=== PATIENT | female | born 1930 | race Caucasian/White ===

== ENCOUNTER 2016-10-14 20:30 | Inpatient (IN) | payer MEDICARE, BC, OTHER ==
--- NOTE | ~2016-10-14 | MR113 ---
[facility] A Service of [facility] & [facility] RADIOLOGY TEXT RESULTS PATIENT: FERNANDA SOLORZANO LOCATION: [place] [address]- : [birth year] UNIT #: [id number] AGE: [address]: Gucci Lezama MD SEX: F ORDER DR: [id number] [facility] [address] [facility]. [place], [place] [address] [id number] I MR#: [id number] Acc #: [id number] NAME: FERNANDA SOLORZANO : 1930 SEX: F STUDY DATE/TIME: 10/16/2016 19:10 UNIT: [facility] ROOM: [facility] STUDY DESCRIPTION: MR Lumbar Wo Contrast Attending Physician: Gucci Lezama M.D. Ordering Physician: Gucci Lezama M.D. Primary Care Physician: Lasha Olivera MRI CENTER REPORT This report is preliminary unless electronic signature is present. EXAM Lumbar spine MRI no contrast, 10/16/2016 COMPARISON None CLINICAL HISTORY Low back pain. Right hip pain. No known injury. Pain/symptoms since 10/14/2016. Patient complains of inability to bear weight. PROCEDURE Unenhanced lumbar spine MRI. The majority of the exam was completed but no axial T1 images were performed as the patient stated she was unable to complete the exam. FINDINGS There is a dextroscoliosis but no andrea or retrolisthesis. There are chronic degenerative marrow signal changes but no acute marrow edema or evidence of marrow infiltration or replacement. The distal cord and conus are normal in position and appearance and the paraspinous tissues are unremarkable. At L1-2, there is a disc bulge and borderline to mild canal stenosis and borderline to mild right and left foraminal stenosis. At L2-3, disc and endplate change cause left greater than right canal stenosis. There is minimal right and mild left foraminal stenosis. At 3-4, disc and endplate change cause mild canal stenosis and [id number] or moderate left and right foraminal stenosis. At 4-5, there is borderline to mild canal stenosis, and mild or xxrb-hu-fojlbsme left and moderate to severe right foraminal stenosis. STS. [facility] A Service of [facility] & [facility] RADIOLOGY TEXT RESULTS PATIENT: FERNANDA SOLORZANO LOCATION: [facility] [id number] : [birth year] UNIT #: [id number] AGE: [address]: Gucci Lezama MD SEX: F ORDER DR: At 5-1, there is degenerative change but no canal stenosis but [id number] or moderate right and left foraminal stenosis. IMPRESSION Lower lumbar multilevel degenerative change but no evidence of acute abnormality at any level. Please see above for level by level details. Dictated by... Abdon Velasquez M.D. THIS IS AN ELECTRONICALLY VERIFIED REPORT Abdon Velasquez M.D. at 10/23/2016 10:40 AM Duran TD: 10/17/2016 12:04 JOB #: [id number] MRI CENTER REPORT Page 1 of 1 COPY
--- NOTE | ~2016-10-14 | CR151 ---
[facility] A Service of [facility] & [facility] RADIOLOGY TEXT RESULTS PATIENT: FERNANDA SOLORZANO LOCATION: [place] [address] : [birth year] UNIT #: [id number] AGE: [address]: Gucci Lezama MD SEX: F ORDER DR: [id number] [facility] [address] [facility]. [place], [place] [address] [id number] E MR#: [id number] Acc #: [id number] NAME: FERNANDA SOLORZANO : 1930 SEX: F STUDY DATE/TIME: 10/14/2016 19:42 UNIT: [facility] ROOM: STUDY DESCRIPTION: CR Hip Min 2 Views Rt Attending Physician: Jorge Park M.D. Referring Physician: Flakito Huerta M.D. Ordering Physician: Ed Evens Agee M.D. Primary Care Physician: Lasha Olivera MEDICAL IMAGING REPORT This report is preliminary unless electronic signature is present EXAM Right hip, [address] abdomen and pelvis dated March 04, 2006. INDICATION 86-year-old female with right hip pain and weakness after falling today. FINDINGS There are calcium densities in the bilateral pelvis, most in keeping with phleboliths. There are arterial calcifications within the proximal thighs. There is degenerative disc height loss at L4-L5 and likely L5-S1, likely with associated degenerative facet disease at these levels. Right hip is anatomically aligned. There is no evidence of acute fracture. There is a Mach line from a haustrum of the sigmoid colon overlapping the pubic symphysis. No evidence of acute fracture. IMPRESSION 1. No evidence of acute fracture or significant degenerative change of the right hip. 2. Arterial calcifications in the thighs bilaterally. 3. Degenerative changes of the lower lumbar spine. Dictated by... Ruslan Lowe M.D. THIS IS AN ELECTRONICALLY VERIFIED REPORT Ruslan Lowe M.D. at 10/18/2016 2:23 PM Matheus TD: 10/14/2016 22:34 STS. [facility] A Service of [facility] & [facility] RADIOLOGY TEXT RESULTS PATIENT: FERNANDA SOLORZANO LOCATION: [place] [address] : [birth year] UNIT #: [id number] AGE: [address]: Gucci Lezama MD SEX: F ORDER DR: JOB #: [id number] MEDICAL IMAGING REPORT Page 1 of 1 COPY
--- NOTE | ~2016-10-14 | MR84 ---
[facility] A Service of [facility] & [facility] RADIOLOGY TEXT RESULTS PATIENT: FERNANDA SOLORZANO LOCATION: [place] [address]- : [birth year] UNIT #: [id number] AGE: [address]: Gucci Lezama MD SEX: F ORDER DR: [id number] [facility] [address] [facility] [place], [place] [address] [id number] I MR#: [id number] Acc #: [id number] NAME: FERNANDA SOLORZANO. : 1930 SEX: F STUDY DATE/TIME: 10/16/2016 11:54 UNIT: [facility] ROOM: [facility] STUDY DESCRIPTION: MR Hip Wo Contrast Rt Attending Physician: Gucci Lezama M.D. Ordering Physician: Gucci Lezama M.D. Primary Care Physician: Lasha Olivera MRI CENTER REPORT This report is preliminary unless electronic signature is present. EXAM MRI pelvis and hips, 10/16/2016. HISTORY Order states MRI right hip. History sheet states right hip pain with no known injury. Weakness. Pain since of 10/14/2016. Unable to bear weight. Diabetic. No reported hip surgery. COMPARISON History and physical [facility] 10/15/2016. Right hip radiographs 10/14/[address] pelvis 02/22/2006. FINDINGS The hips demonstrate no effusion, fracture, avascular necrosis, or high-grade arthritic change. The remainder of the bony pelvis, sacrum, and SI joints demonstrate no fracture or lesion. The predominant abnormality is a gluteus medius tendon detachment from the greater trochanter with 2.5 cm tendon retraction and marked surrounding muscle and soft tissue edema. Retracted tendon is tendinopathic. There is a moderate atrophy of the distal central muscle belly of the gluteus medius. There is marked bilateral gluteus minimus muscle atrophy with attenuated tendons but no discrete tear or detachment. There is also chronic atrophy of the left gluteus medius muscle in its distal portion with tendinosis but no tendon tear detachment demonstrated. There is also edema within the right piriformis muscle which may be tracking from the gluteus medius tendon pathology. Edema tracks through the greater sciatic notch, as well as along the course of the greater sciatic nerve. [facility] A Service of [facility] RADIOLOGY TEXT RESULTS PATIENT: FERNANDA SOLORZANO LOCATION: [facility] [id number] : [birth year] UNIT #: [id number] AGE: [address]: Gucci Lezama MD SEX: F ORDER DR: Hamstring tendon origins are intact. There is a Bishop catheter and air in the bladder. There is prominent sigmoid diverticulosis. No groin hernia or internal pelvic mass or adenopathy is noted. Right-sided hip region edema also tracks into the proximal anterolateral thigh superficial to the vastus lateralis muscle. IMPRESSION 1. There is no pelvic or hip fracture. No internal derangement of the hip joints. 2. The predominant abnormality is right gluteus medius tendon detachment from the greater trochanter with 2.5 cm tendon retraction and marked surrounding soft tissue edema. Edema tracks across the greater sciatic notch into the piriformis muscle as well as into the anterolateral right thigh. There is right sciatic perineural edema. No hematoma. 3. Bilateral gluteus minimus and medius muscle atrophy detailed above. 4. Diverticulosis. STAT * RESULT Dictated by... Gretchen Howard M.D. THIS IS AN ELECTRONICALLY VERIFIED REPORT Gretchen Howard M.D. at 10/16/2016 3:44 PM ROBERTH/see TD: 10/16/2016 13:50 JOB #: [id number] MRI CENTER REPORT Page 1 of 1 COPY
--- NOTE | ~2016-10-14 | CO ---
Unit #: [id number] #: [id number] Patient: FERNANDA SOLORZANO [id number] [address] [place], [place] [address] [id number] I MR#: [id number] NAME: FERNANDA SOLORZANO ROOM: 477 Age: 86 Sex: F Admission Date: 10/15/2016 : 1930 Attending Physician: Gucci Lezama M.D. Primary Care Physician: Lasha Olivera Consultation Date: 10/16/2016 CONSULTATION REPORT PREOPERATIVE DIAGNOSIS Trochanteric bursitis, right hip. POSTOPERATIVE DIAGNOSIS Trochanteric bursitis, right hip. PROCEDURE PERFORMED Right hip trochanteric bursa injection. DESCRIPTION OF PROCEDURE At the bedside, under alcohol prep, the trochanteric bursa was injected with 2 mL of 1% plain Xylocaine and 80 mg of Depo-Medrol. Sterile dressing was applied, and the patient tolerated the procedure well. Dictated by... Randee Leon/danielle TD: 10/16/2016 17:02 JOB #: [id number] CONSULTATION REPORT Page 1 of 1 X Jeff Wick MD X CONSULTATION REPORT
--- NOTE | ~2016-10-14 | DS ---
Unit #: [id number] #: [id number] Patient: FERNANDA SOLORZANO [id number] [address] [place], [place] [address] [id number] I MR#: [id number] NAME: FERNANDA SOLORZANO. ROOM: 477 Age: 86 Sex: F Admission Date: 10/15/2016 : 1930 Discharge Date: 10/19/2016 Attending Physician: Gucci Lezama M.D. Primary Care Physician: Lasha Olivera DISCHARGE SUMMARY PRINCIPAL DISCHARGE DIAGNOSES 1. Right gluteal medius tendon tear. 2. Lumbar spinal stenosis. 3. Right lower extremity radiculopathy. 4. Type 2 diabetes mellitus. 5. Renal insufficiency. 6. Hypertension. 7. Gout. 8. Hypothyroidism. PROCEDURES None. CONSULTANTS Dr. Wick. REASON FOR HOSPITALIZATION The patient is an 86-year-old white female who presents to the emergency room with mobilization syndrome secondary to acute right hip pain. In the emergency room, x-rays of the right hip were normal but showed degenerative disc disease of the spine. CBC was normal. Urinalysis was normal. BUN was 33. GFR 44.8. The patient was admitted. HOSPITAL COURSE She was seen by Dr. Wick. Uric acid was checked because of her history of gout and was within normal range at 2.8. MRI of the hip and L/S spine were performed. MRI of the hip showed no fracture. It showed a right gluteus medius tendon detachment from the right greater trochanter of 2.5 cm of retraction with marked surrounding soft tissue edema. MRI of the spine showed multilevel degenerative disc disease and stenosis particularly worse at L4-5 with moderate to severe right foraminal stenosis as the patient's symptoms went down her leg as well. I think it is a combination of both. She is going to [place] for further physical therapy. Her blood sugars originally were a little low. Adjustments were made in her insulin and they have been fine ever since. She is being discharged on a constant carb diet. CURRENT MEDICATIONS 1. Lovenox 40 mg subcu daily. 2. Neurontin 300 mg b.i.d. 3. Paxil 10 mg daily. 4. Amlodipine 5 mg daily. 5. Lasix 20 mg daily. 6. Clonidine 0.1 mg daily. Unit #: [id number] #: [id number] Patient: FERNANDA SOLORZANO 7. Diovan 160 mg daily. 8. NovoLog 70/30 15 units a.m. and 10 units p.m. 9. NovoLog sliding scale insulin low dose q.a.c. and h.s. 10. Pepcid 20 mg p.o. b.i.d. 11. Zyloprim 300 mg daily. 12. Aspirin 81 mg daily. 13. Newton 5/325 mg one q.i.d. p.r.n. for pain. 14. Plavix 75 mg daily. 15. Vitamin D 400 units daily. Dictated by... Gucci Lezama M.D. BRICE/elisabeth TD: 10/19/2016 09:21 JOB #: [id number] DISCHARGE SUMMARY Page 1 of 1 X Gucci Lezama MD X DISCHARGE SUMMARY
--- NOTE | ~2016-10-14 | CO ---
Unit #: [id number] #: [id number] Patient: FERNANDA SOLORZANO [id number] [address] [place], [place] [address] [id number] I MR#: [id number] NAME: FERNANDA SOLORZANO ROOM: 477 Age: 86 Sex: F Admission Date: 10/15/2016 : 1930 Attending Physician: Gucci Lezama M.D. Primary Care Physician: Lasha Olivera Consultation Date: 10/16/2016 CONSULTATION REPORT HISTORY OF PRESENT ILLNESS This is an 86-year-old lady, the patient of Dr. Gucci Lezama. She is admitted to the hospital for right hip pain and difficulty walking. She has not had an injury. The pain is mostly lateral, but it does radiate down the leg to the knee. She denies serious groin pain. No fevers or chills reported, and she can walk, but has to use a cane. ALLERGIES Include Phenergan, codeine, and sulfa. PAST SURGICAL HISTORY Includes thyroid, hysterectomy, cataract, cholecystectomy, and bilateral knee replacements. MEDICATIONS Gabapentin, NovoLog, amlodipine, clonidine, Plavix, Zantac, Paxil, Lasix, Diovan, Zyloprim, vitamin D, aspirin. PAST MEDICAL HISTORY Includes hyperlipidemia, hypothyroidism, hypertension, anxiety disorder, and type 2 diabetes. SOCIAL HISTORY She denies use of tobacco or alcohol. She is . REVIEW OF SYSTEMS HEENT: She denies headaches or blurred vision. Denies loss of hearing or tinnitus. CARDIAC/RESPIRATORY: She denies shortness of breath or chest pain. She denies orthopnea. She denies coughing, wheezing, or difficulty breathing. ABDOMEN: She denies rebound. No diarrhea or vomiting noted. UROLOGIC: She denies flank pain or hematuria. NEUROLOGIC: She denies numbness or weakness in the lower extremities. ORTHOPEDIC: She complains of right hip pain. Tenderness laterally. She cannot sleep on her right side. PHYSICAL EXAMINATION GENERAL: She is alert, awake, and oriented x3. Answers questions appropriately. MUSCULOSKELETAL: Her orthopedic exam reveals that her right hip is tender to palpation on the lateral side. Her neurovascular exam is intact. Range of motion of her hip is intact with no groin pain. DIAGNOSTIC STUDIES Unit #: [id number] #: [id number] Patient: FERNANDA SOLORZANO IMAGING STUDIES: She actually had an MRI of her hip that shows avulsion of the gluteus medius muscle with retraction about an inch. IMPRESSION She has bursitis. PLAN The plan will be to inject this. At this point, I would not recommend surgical treatment of her gluteus medius abduction injury. Dictated by... Randee Leon/danielle TD: 10/16/2016 20:55 JOB #: [id number] CONSULTATION REPORT Page 1 of 1 X Jeff Wick MD X CONSULTATION REPORT
--- NOTE | ~2016-10-14 | HP ---
Unit #: [id number] #: [id number] Patient: FERNANDA SOLORZANO [id number] [address] [place], [place] [address] [id number] I MR#: [id number] NAME: FERNANDA SOLORZANO. ROOM: 477 Age: 86 Sex: F Admission Date: 10/15/2016 : 1930 Attending Physician: Jose Abreu M.D. Primary Care Physician: Lasha Olivera HISTORY AND PHYSICAL HISTORY OF PRESENT ILLNESS The patient is an 86-year-old white female with a history of hypertension and type 2 diabetes mellitus, hyperlipidemia, gout, hypothyroidism, who apparently has had long ongoing problems with right lower extremity pain, which radiates into the posterior hip, down into the foot. She then became markedly worse yesterday and was unable to ambulate and came to the emergency room and had an essentially negative workup, (1) look at her back and she is admitted for immobilization syndrome and pain control. ALLERGIES Sulfa, Phenergan and codeine. MEDICATIONS PRIOR TO ADMISSION Gabapentin 300 mg b.i.d.; NovoLog 70/30 no dose; amlodipine 5 mg daily; clonidine 0.1 mg daily; Plavix 75 mg daily; Zantac 300 mg daily; Paxil 10 mg daily; Lasix 20 mg daily; Diovan 100 mg daily; Zyloprim 300 mg daily; vitamin D 400 units daily; aspirin 81 mg daily. PAST SURGICAL HISTORY Thyroidectomy, hysterectomy, cholecystectomy, bilateral cataracts. PAST MEDICAL HISTORY Diabetes type 2 insulin requiring, hypertension, generalized anxiety disorder, hypothyroidism, gout, hyperlipidemia. SOCIAL HISTORY . No alcohol, tobacco or illicit drug use. FAMILY HISTORY Noncontributory. PHYSICAL EXAMINATION GENERAL: Awake, alert and oriented x3 in no acute distress. VITAL SIGNS: Afebrile, pulse 82, respirations 16, blood pressure 132/80, O2 sats 98% on room air. HEENT: Unremarkable. NECK: Supple. No JVD, adenopathy, thyromegaly. CHEST: Clear to auscultation. HEART: Regular rate and rhythm without any murmurs, rubs or gallops. ABDOMEN: Soft, nondistended, and nontender. Positive bowel sounds. EXTREMITIES: No clubbing, cyanosis or edema. Right lower extremities neurovascularly intact. Unit #: [id number] #: [id number] Patient: FERNANDA SOLORZANO DIAGNOSTIC STUDIES LAB VALUES: CBC - normal. Urinalysis - normal. BNP normal except for random blood sugar of 179, BUN of 33, and a GFR of 44.8. CARDIOLOGY STUDIES: EKG - sinus rhythm with first degree AV block, PACs, left axis deviation, poor R wave progression and no old EKGs for comparison. IMPRESSION 1. Right hip pain, which sound like radiculopathy. 2. Hypertension. 3. Type 2 diabetes mellitus. 4. Hyperlipidemia. 5. Hypothyroidism. 6. Gout. 7. Status post thyroidectomy. 8. Status post hysterectomy. 9. Status post cholecystectomy. 10. Renal insufficiency. PLAN 1. Ortho consult. 2. Lovenox for DVT prophylaxis. 3. Check uric acid level. 4. MRI of the LS spine and right hip. 5. Pain control. 6. PT and OT if there is no fractures or other significant injuries. 7. Further evaluation pending results of the above. Dictated by Gucci Lezama M.D. BRICE/federico TD: 10/15/2016 15:17 JOB #: [id number] HISTORY AND PHYSICAL Page 1 of 1 X Gucci Lezama MD HISTORY AND PHYSICAL
--- NOTE | ~2016-10-14 | EKG ---
PATIENT: FERNANDA SOLORZANO UNIT #: [id number] Ventricular Rate: 97 BPM Atrial Rate: 97 BPM P-R Interval: 222 ms QRS Duration: 112 ms Q-T Interval: 374 ms QTC Calculation(Bezet): 474 ms P Hixson: 99 degrees Calculated R Hixson: -49 degrees Calculated T Hixson: 85 degrees Diagnosis Line: Sinus rhythm with 1st degree A-V block with Diagnosis Line: Premature atrial complexes Diagnosis Line: Left axis deviation Diagnosis Line: Pulmonary disease pattern Diagnosis Line: Septal infarct , age undetermined Diagnosis Line: Abnormal ECG Diagnosis Line: When compared with ECG of 05-APR-2015 13:25, Diagnosis Line: CA interval has increased Diagnosis Line: Confirmed by KIM LEI MD ([id number]) on 10/15/2016 Diagnosis Line: 10:46:02 PM INTERPRETING MD: DO WILSON
[~2016-10-14 20:30] MED LIST: ACETAMINOPHEN500 M7 PO; AMLODIPINE BESYL5 MG PO; ASPIRIN81 M2 PO; CARDIZEM CD; CATAPRES0.1 MG PO; CENTRUM SILVER PO; CLOPIDOGREL75 MG PO; DIOVAN HCT 160/1 TAB; GABAPENTIN300 M2 PO; GLYNASE; LEVOTHYROXINE75 MCG PO; MAGNESIUM400 MG PO; MEDI-MECLIZINE25 M1 PO; METFORMIN; NOVOLOG7030 SUBQ; PAROXETINE HCL10 MG PO; PROTONIX; RANITIDINE HCL300 MG PO; SYNTHROID; TOPROL XL; VALSARTAN-HCTZ1 EAC1 PO; [UNRECOGNIZED DRUG - OTHER]
[2016-10-14 22:50] LABS: URINE SOURCE CLEAN CATCH
[2016-10-14 22:54] LABS: URINE APPEARANCE CLEAR; URINE BILIRUBIN NEG (NEG); URINE BLOOD NEG (NEG); URINE COLOR YELLOW; URINE GLUCOSE NEG (NEG); URINE KETONE NEG (NEG); URINE LEUKOCYTE ESTERASE NEG (NEG); URINE NITRATE NEG (NEG); URINE PH 6.5 (5-8); URINE PROTEIN NEG (NEG); URINE SPECIFIC GRAVITY 1.005 (1.003-1.035); URINE UROBILINOGEN 0.2 MG/DL (NEG)
[2016-10-14 22:56] LABS: BASOPHIL% 0.3 % (0-2.5); EOSINOPHIL# 0.2 X10e3 (0-0.7); EOSINOPHIL% 1.8 % (0.0-7.0); HEMATOCRIT 41.4 % (35.0-45.0); HEMOGLOBIN 13.4 gm/dL (12.0-16.0); LYMPHOCYTE# 1.9 X10e3 (1.0-3.5); LYMPHOCYTE% 21.2 % (17.0-45.0); MEAN CELL VOLUME 100.2 FL (83-96); MEAN CORPUSCULAR HEMOGLOBIN 32.4 PG (28-34); MEAN CORPUSCULAR HGB CONC 32.3 g/dL (30-36); MEAN PLATELET VOLUME 8.8 FL (6.5-11.5); MONOCYTE# 0.7 X10e3 (0-1.0); NEUTROPHIL# 6.1 X10e3 (1.5-7.1); NEUTROPHIL% 68.7 % (40-75); PLATELET COUNT 239 X10e3 (140-420); RED BLOOD COUNT 4.13 X10e (3.90-5.30); RED CELL DISTRIBUTION WIDTH 15.7 % (11.0-15.5); WHITE BLOOD COUNT 8.8 X10e3 (4.0-10.5)
[2016-10-14 22:57] LABS: DIFF IND NO
[2016-10-14 22:58] LABS: CULTURE INDICATED? NO
[2016-10-14 23:16] LABS: CALCIUM SERUM 9.3 mg/dL (8.4-10.2); CREATININE SERUM 1.1 mg/dL (0.6-1.4); GLOM FILT RATE Estimated 44.8 mL/min (>60); POTASSIUM 4.5 mmol/L (3.5-5.1)
[2016-10-15] MEDS ORDERED: GABAPENTIN300 MG PO (05:37)
[2016-10-15] MEDS ORDERED: NOVOLOG7030 (05:38)
[2016-10-15] MEDS ORDERED: AMLODIPINE BESYL5 MG PO (05:40)
[2016-10-15] MEDS ORDERED: METOPROLOL/HCTZ PO (05:40)
[2016-10-15] MEDS ORDERED: CLONIDINE HCL0.1 MG PO (05:41)
[2016-10-15] MEDS ORDERED: CLOPIDOGREL75 MG PO (05:41)
[2016-10-15] MEDS ORDERED: RANITIDINE HCL300 MG PO (05:43)
[2016-10-15] MEDS ORDERED: PAXIL PO (09:46)
[2016-10-15] MEDS ORDERED: LASIX20 MG PO (09:47)
[2016-10-15] MEDS ORDERED: DIOVAN PO (09:47)
[2016-10-15] MEDS ORDERED: ZYLOPRIM PO (09:48)
[2016-10-15] MEDS ORDERED: BAYER CHEWABLE81 MG PO (09:48)
[2016-10-15] MEDS ORDERED: VITAMIN D400 UNI2 PO (09:48)
== END 2016-10-19 12:00 | DRG 558 ==
LOC: CED 20:30 → CEDOF 10-15 00:16 → C4C 10-15 14:05
PROVIDERS: Emergency Medicine
PROC: 3E0U33Z Introduction of Anti-inflammatory into Joints, Percutaneous Approach (ICD-10-PCS; principal; 2016-10-16)
DX: M70.61 Trochanteric bursitis, right hip (principal); E11.9 Type 2 diabetes mellitus without complications; I10 Essential (primary) hypertension; S76.011A Strain of muscle, fascia and tendon of right hip, initial encounter; Y93.9 Activity, unspecified; X58.XXXA Exposure to other specified factors, initial encounter; M48.06 Spinal stenosis, lumbar region; M54.10 Radiculopathy, site unspecified; Z79.4 Long term (current) use of insulin; N28.9 Disorder of kidney and ureter, unspecified; M10.9 Gout, unspecified; E78.5 Hyperlipidemia, unspecified; M62.3 Immobility syndrome (paraplegic); Z90.710 Acquired absence of both cervix and uterus; Z90.49 Acquired absence of other specified parts of digestive tract; E89.0 Postprocedural hypothyroidism; Z88.5 Allergy status to narcotic agent; Z88.2 Allergy status to sulfonamides; Z88.8 Allergy status to other drugs, medicaments and biological substances
CPT/HCPCS: 36415; 51702; 72148; 73502; 73721; 80048; 81003; 82947; 84550; 85025; 93005; 97110; 97116; 97162; 97166; 97530; 97535; 99285; G8978-GP; G8979-GP; G8980-GP; G8987-GO; G8988-GO; J1040; J1650; J1815